=== PATIENT | female | born 1970 | race Asian ===

== ENCOUNTER → 2016-10-05 | Outpatient (CLI) | payer BC | END | disposition home or self-care (01) | LOC: C.PAPS 18:03 | PROVIDERS: ATTEND Obstetrics & Gynecology | DX: Z01.419 Encounter for gynecological examination (general) (routine) without abnormal findings (principal) ==

== ENCOUNTER 2016-11-21 13:04 | Emergency (ER) | payer BC ==
[~2016-11-21] VITALS: Ht 167.6 cm; Wt 64.3 kg
[2016-11-21 13:10] VITALS: TEMP 36.4; Ht 167.6 cm; Wt 64.3 kg
[2016-11-21] MEDS ORDERED: HYDROCODONE/ACETAMOPHEN 5/325MG TAB PO STA (13:18)
[2016-11-21] MEDS ORDERED: CITA20TA9 PO (13:20)
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
--- NOTE | 2016-11-21 13:58 | DIAGNOSTIC IMAGING REPORT ---
LEFT ELBOW MIN 3 VIEWS ROUTINE, LEFT FOREARM 2 VIEWS ROUTINE CLINICAL HISTORY: fall. Left elbow and left forearm pain. COMPARISON STUDY: None. FINDINGS: Small focus of calcification at the proximal attachment of the common extensor tendon. This favors a calcific tendinitis. Soft tissue swelling within the elbow/proximal forearm. There may be a small elbow effusion. Questionable lucency at the radial head on the seen on the forearm views. This raises of a nondisplaced radial head fracture. IMPRESSION: Soft tissue swelling within the elbow/proximal forearm. There may be a small elbow effusion and possible nondisplaced fracture at the radial head. Follow up radiograph in 2 weeks is recommended for confirmation. Electronically signed by: Derek Guzman M.D. 11/21/2016 1:57 PM Dictated Date/Time: 11/21/2016 1:53 PM
[2016-11-21] MEDS ORDERED: HYDR-5688 PO (14:12)
[2016-11-21 14:39] VITALS: BP 111/69; PULSE 62; O2SAT 99
== END 2016-11-21 14:47 | disposition home or self-care (01) ==
LOC: C.EDB 13:05
DX: S52.125A Nondisplaced fracture of head of left radius, initial encounter for closed fracture (principal); V11.0XXA Pedal cycle driver injured in collision with other pedal cycle in nontraffic accident, initial encounter; W19.XXXA Unspecified fall, initial encounter; M25.422 Effusion, left elbow